=== PATIENT | female | born 1995 | race Caucasian/White ===

== ENCOUNTER 2019-02-02 19:12 | Emergency (ER) | payer OTHER ==
[2019-02-02] MEDS ORDERED: ACETAMINOPHEN 325 MG TABLET PO ONE (19:32)
[2019-02-02] MEDS ORDERED: PROMETHAZINE HCL 25 MG TABLET PO ONE (19:32)
--- NOTE | 2019-02-02 19:33 | ER Document Report ---
ED Medical Screen (RME) - General Chief Complaint: Vaginal Bleeding Stated Complaint: VAGINAL BLEEDING,CRAMPING Time Seen by Provider: 02/02/19 19:29 Mode of Arrival: Ambulatory Information source: Patient Notes: Patient presents emergency department with complaints of left lower quadrant abdominal pain. Patient is approximately 7 weeks. This is her first . Reports vaginal bleeding for the last 3 days. Denies trauma. Reports history of endometriosis. Reports she is gone through approximately 6 light pads in the past 3 days. I have greeted and performed a rapid initial assessment of this patient. A comprehensive ED assessment and evaluation of the patient, analysis of test results and completion of the medical decision making process will be conducted by additional ED providers. Dictation of this chart was performed using voice recognition software; therefore, there may be some unintended grammatical errors. TRAVEL OUTSIDE OF THE [place] IN LAST 30 DAYS: No - Related Data Allergies/Adverse Reactions: No Known Allergies Allergy (Unverified 02/02/19 19:15) Physical Exam - Vital signs Vitals: Temp Pulse Resp BP Pulse Ox 98.7 F 77 16 106/67 100 02/02/19 19:17 02/02/19 19:17 02/02/19 19:17 02/02/19 19:17 02/02/19 19:17 Course - Vital Signs Vital signs: Temp Pulse Resp BP Pulse Ox 98.7 F 77 16 106/67 100 02/02/19 19:17 02/02/19 19:17 02/02/19 19:17 02/02/19 19:17 02/02/19 19:17
[2019-02-02 20:07] LABS: ABSOLUTE LYMPHOCYTES (AUTO) 1.8 10^3/uL (0.5-4.7); ABSOLUTE MONOCYTES (AUTO) 0.6 10^3/uL (0.1-1.4); ABSOLUTE NEUT (AUTO) 6.1 10^3/uL (1.7-8.2); BASOPHILS % (AUTO) 0.2 % (0-2); EOSINOPHILS % (AUTO) 0.4 % (0-6); HEMATOCRIT 40.5 % (36.0-47.0); HEMOGLOBIN 13.8 g/dL (12.0-15.5); LYMPHOCYTES % (AUTO) 21.1 % (13-45); MEAN CORPUSCULAR HEMOGLOBIN 28.8 pg (27.0-33.4); MEAN CORPUSCULAR VOLUME 85 fl (80-97); MONOCYTES % (AUTO) 7.1 % (3-13); PLATELET COUNT 246 10^3/uL (150-450); RED CELL DISTRIBUTION WIDTH 12.8 % (11.5-14.0); SEGMENTED NEUTROPHILS % (AUTO) 71.2 % (42-78); TOTAL CELLS COUNTED % (AUTO) 100 %; WHITE BLOOD COUNT 8.6 10^3/uL (4.0-10.5)
[2019-02-02 20:31] LABS: ALANINE AMINOTRANSFERASE 27 U/L (9-52); ALBUMIN 4.6 g/dL (3.5-5.0); ALKALINE PHOSPHATASE 49 U/L (38-126); ANION GAP 11 (5-19); ASPARTATE AMINO TRANSFERASE 23 U/L (14-36); BILIRUBIN,DIRECT 0.1 mg/dL (0.0-0.4); BILIRUBIN,TOTAL 0.5 mg/dL (0.2-1.3); BLOOD UREA NITROGEN 9 mg/dL (7-20); CALCIUM 9.7 mg/dL (8.4-10.2); CARBON DIOXIDE 28 mmol/L (22-30); CHLORIDE 101 mmol/L (98-107); GLUCOSE 98 mg/dL (75-110); POTASSIUM 4.4 mmol/L (3.6-5.0); TOTAL PROTEIN 7.7 g/dL (6.3-8.2)
[2019-02-02 22:03] LABS: APPEARANCE,URINE SLIGHTLY-CLOUDY; BILIRUBIN,URINE NEGATIVE (NEGATIVE); COLOR,URINE YELLOW; GLUCOSE, URINE NEGATIVE (NEGATIVE); KETONES,URINE TRACE mg/dL (NEGATIVE); LEUKOCYTE ESTERASE,URINE NEGATIVE (NEGATIVE); NITRITE,URINE NEGATIVE (NEGATIVE); PROTEIN,URINE NEGATIVE (NEGATIVE); URINE SPECIFIC GRAVITY 1.017; UROBILINOGEN,URINE NEGATIVE mg/dL (<2.0)
--- NOTE | 2019-02-02 23:17 | RADIOLOGY REPORT (SQ) ---
EXAM DESCRIPTION: US TRANSVAGINAL COMPLETED DATE/TME: 02/02/2019 19:32 CLINICAL HISTORY: 23 years, Female, preg, abd pain, bleeding EXAM DESCRIPTION: CLINICAL HISTORY: preg, abd pain, bleeding COMPARISON: None. FINDINGS: transvaginal images of the pelvis were submitted. Ectopic is not excluded. Uterus measures 75 x 36 x 49 mm, right ovary 33 x 27 x 22 mm, left ovary is not visualized. Cervix length 28 mm. In the endometrium at the lower uterine segment is complex nonspecific tissue. No IUP is identified. No other abnormality of the uterus or right ovary is seen. Normal flow seen in the right ovary. IMPRESSION: No IUP is seen. Ectopic is not excluded. Follow-up is recommended.
--- NOTE | 2019-02-03 00:56 | ER Document Report ---
ED General - General Chief Complaint: Vaginal Bleeding Stated Complaint: VAGINAL BLEEDING,CRAMPING Time Seen by Provider: 02/02/19 19:29 Primary Care Provider: KISHA VAZQUEZ MD [ACTIVE STAFF] - 02/05/19 Mode of Arrival: Ambulatory Notes: Patient is a 23-year-old female G1, P0 at approximately 7 weeks by LMP who presents with 3 days of vaginal bleeding as well as lower abdominal cramping. States that she has bleeding similar to when she is having a menstrual cycle. Describes her lower abdominal pain as being an intermittent, cramping, mild to moderate pain similar to menstrual cramps. Nothing seems to improve or worsen her symptoms. No history of similar symptoms during the up until the past 3 days. Has not yet established renal care for this . Denies fev er or constitutional symptoms. No dysuria. TRAVEL OUTSIDE OF THE [place] IN LAST 30 DAYS: No - Related Data Allergies/Adverse Reactions: No Known Allergies Allergy (Unverified 02/02/19 19:15) Past Medical History - General Information source: Patient - Social History Smoking Status: Never Smoker Chew tobacco use (# tins/day): No Frequency of alcohol use: None Drug Abuse: None Lives with: Spouse/Significant other Family History: Reviewed & Not Pertinent Patient has suicidal ideation: No Patient has homicidal ideation: No Pulmonary Medical History: Reports: Hx Asthma Renal/ Medical History: Denies: Hx Peritoneal Dialysis Review of Systems - Review of Systems Notes: Constitutional: Negative for fever. HENT: Negative for sore throat. Eyes: Negative for visual changes. Cardiovascular: Negative for chest pain. Respiratory: Negative for shortness of breath. Gastrointestinal: Positive for lower abdominal cramping Genitourinary: Positive for vaginal bleeding Musculoskeletal: Negative for back pain. Skin: Negative for rash. Neurological: Negative for headaches, weakness or numbness. 10 point ROS negative except as marked above and in HPI. Physical Exam - Vital signs Vitals: Temp Pulse Resp BP Pulse Ox 98.7 F 77 16 106/67 100 02/02/19 19:17 02/02/19 19:17 02/02/19 19:17 02/02/19 19:17 02/02/19 19:17 Interpretation: Normal Notes: PHYSICAL EXAMINATION: GENERAL: Well-appearing, well-nourished and in no acute distress. HEAD: Atraumatic, normocephalic. EYES: Pupils equal round and reactive to light, extraocular movements intact, sclera anicteric, conjunctiva are normal. ENT: nares patent, oropharynx clear without exudates. Moist mucous membranes. NECK: Normal range of motion, supple without lymphadenopathy LUNGS: Breath sounds clear to auscultation bilaterally and equal. No wheezes rales or rhonchi. HEART: Regular rate and rhythm without murmurs ABDOMEN: Soft, nontender, normoactive bowel sounds. No guarding, no rebound. No masses appreciated. EXTREMITIES: Normal range of motion, no pitting or edema. No cyanosis. NEUROLOGICAL: No focal neurological deficits. Moves all extremities spontaneously and on command. PSYCH: Normal mood, normal affect. SKIN: Warm, Dry, normal turgor, no rashes or lesions noted. Course - Re-evaluation Re-evalutation: 02/03/19 00:54 Patient presents with a mild amount of vaginal bleeding in the setting of an early first trimester . Transvaginal ultrasound is unable to visualize an intrauterine at this time. Quantitative beta hCG below the zone of demargination. No active bleeding at time of presentation. She is Rh positive. Patient's abdominal exam is otherwise benign without any focal tenderness. I do not suspect an acute appendicitis, pyelonephritis, cystitis, or bowel obstruction. At this time I have informed the patient that she needs to return to the emergency department or the women's clinic in 48 hours for recheck of her quantitative beta hCG to assess whether or not this is a probable miscarriage or a possible ectopic . At this time will discharge with return precautions and follow-up recommendations. Verbal discharge instructions given a the bedside and opportunity for questions given. Medication warnings reviewed. Patient is in agreement with this plan and has verbalized understanding of return precautions and the need for primary care follow-up in the next 24-72 hours. - Vital Signs Vital signs: Temp Pulse Resp BP Pulse Ox 99.0 F 69 15 100/72 100 02/03/19 00:55 02/03/19 00:55 02/03/19 00:55 02/03/19 00:55 02/03/19 00:55 - Laboratory Result Diagrams: 02/02/19 19:45 02/02/19 19:45 Laboratory results interpreted by me: 02/02/19 02/02/19 19:45 21:45 Beta HCG, Quant 574.18 H Urine Ketones TRACE H Urine Blood LARGE H Urine Ascorbic Acid 40 H - Diagnostic Test Radiology reviewed: Reports reviewed Discharge - Discharge Clinical Impression: Vaginal bleeding during , related bilateral lower abdominal pain, antepartum, of unknown anatomic location Condition: Good Disposition: HOME, SELF-CARE Additional Instructions: You need to return to the ED or the women's health clinic in 48 hours for a recheck of your hormone level. The ultrasound is unable to see anything at this time likely secondary to a miscarriage versus a very early . We cannot definitively exclude an ectopic at this time. Please return if you develop severe abdominal pain, bleeding that goes through more than 2 pads for more than 2 hours, pass out, or have any other symptoms that are concerning to you. Please follow-up closely with your OBGYN regarding todays visit. Referrals: KISHA VAZQUEZ MD [ACTIVE STAFF] - 02/05/19
[2019-02-03 00:59] VITALS: BP 100/72
== END 2019-02-03 01:07 | disposition home or self-care (01) ==
LOC: ER 19:12
DX: O20.9 Hemorrhage in early pregnancy, unspecified (principal); O26.891 Other specified pregnancy related conditions, first trimester; R10.30 Lower abdominal pain, unspecified; O99.511 Diseases of the respiratory system complicating pregnancy, first trimester; J45.909 Unspecified asthma, uncomplicated; Z3A.00 Weeks of gestation of pregnancy not specified
CPT/HCPCS: 36415; 76817; 80053; 81001; 84702; 85025; 86900; 86901; 99284